=== PATIENT | male | born 1950 | race Caucasian/White ===

== ENCOUNTER 2020-11-10 21:04 | Observation (INO) | payer MEDICARE ==
[~2020-11-10] VITALS: Ht 182.9 cm; Wt 123.8 kg
[2020-11-10] MEDS ORDERED: ALBUTEROL SULFATE 2.5 MG/3 ML NPPB ONE (21:30)
[2020-11-10] MEDS ORDERED: ALBUTEROL SULFATE 2.5 MG/3 ML ONE (21:35)
--- NOTE | 2020-11-10 21:55 | NUR ---
pt states having chest pain and sob since july this year. 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 pt recently moved here from [place], labs drawn, recieving albuterol, on all the monitors. given water, ok per erp
[2020-11-10 21:56] LABS: BASOPHILS % (AUTO) 0 % (0-1); EOSINOPHILS % (AUTO) 0 % (1-7); LYMPHOCYTES % (AUTO) 12 % (22-44); MEAN CORPUSCULAR HEMOGLOBIN 34.2 pg (27.5-34.5); MEAN CORPUSCULAR HGB CONC 34.8 g/dL (33.2-36.2); MEAN PLATELET VOLUME 8.7 fL (7.4-10.4); MONOCYTES % (AUTO) 7 % (2-9); NEUTROPHILS % (AUTO) 80 % (42-75); PLATELET COUNT 122 x10^3/uL (130-400); RED CELL DISTRIBUTION WIDTH 15.3 % (9.4-14.8)
[2020-11-10 22:09] LABS: ALANINE AMINOTRANSFERASE 153 U/L (12-78); ALBUMIN 3.1 g/dL (3.4-5.0); ANION GAP 8 mmol/L (5-15); CALCIUM 8.8 mg/dL (8.5-10.1); CHLORIDE 111 mmol/L (98-107); CREATININE 0.88 mg/dL (0.7-1.3)
[2020-11-10 22:19] LABS: ALKALINE PHOSPHATASE 46 U/L (45-117); BILIRUBIN,TOTAL 1.7 mg/dL (0.2-1.0); TOTAL PROTEIN 6.3 g/dL (6.4-8.2); TROPONIN I < 0.015 ng/mL (0.000-0.045)
[2020-11-10] MEDS ORDERED: NITROGLYCERIN 0.4 MG BOTTLE (25 TABS) SL PRN (23:30)
[2020-11-10] MEDS ORDERED: morphine SULFATE 10 MG/ML, 1ML IVPush PRN (23:30)
[2020-11-10] MEDS ORDERED: POLYETHYLENE GLYCOL 17 GM PACKET PO PRN (23:30)
[2020-11-10] MEDS ORDERED: ONDANSETRON ODT 4 MG PO PRN (23:30)
[2020-11-10] MEDS ORDERED: BISACODYL 10 MG SUPP PR PRN (23:30)
--- NOTE | 2020-11-10 23:46 | NUR ---
ATT X 1
[2020-11-11] MEDS ORDERED: LOSA50TA14 PO (00:13)
[2020-11-11] MEDS ORDERED: AMLO-211 PO (00:13)
[2020-11-11] MEDS ORDERED: DABI150C PO (00:13)
[2020-11-11] MEDS ORDERED: DOXA8TAB63 PO (00:13)
[2020-11-11] MEDS ORDERED: CARV12.52 PO (00:13)
[2020-11-11] MEDS ORDERED: TORS10TA4 PO (00:13)
[2020-11-11] MEDS ORDERED: ALLO100T30 PO (00:13)
[2020-11-11] MEDS ORDERED: PRED20TA PO (00:13)
[2020-11-11 00:45] VITALS: BP 125/83
[2020-11-11] MEDS ORDERED: MAALOX/HYOSCYAMINE/LIDOCAINE 45 ML BTL PO ONE (01:30)
[2020-11-11 05:25] LABS: BASOPHILS % (AUTO) 0 % (0-1); EOSINOPHILS % (AUTO) 0 % (1-7); LYMPHOCYTES % (AUTO) 14 % (22-44); MEAN CORPUSCULAR HEMOGLOBIN 34.8 pg (27.5-34.5); MEAN CORPUSCULAR HGB CONC 34.8 g/dL (33.2-36.2); MEAN PLATELET VOLUME 8.9 fL (7.4-10.4); MONOCYTES % (AUTO) 7 % (2-9); NEUTROPHILS % (AUTO) 79 % (42-75); PLATELET COUNT 123 x10^3/uL (130-400); RED CELL DISTRIBUTION WIDTH 15.2 % (9.4-14.8)
[2020-11-11 05:29] LABS: CHLORIDE 109 mmol/L (98-107)
[2020-11-11 05:42] LABS: ALANINE AMINOTRANSFERASE 146 U/L (12-78); ALKALINE PHOSPHATASE 37 U/L (45-117); ANION GAP 9 mmol/L (5-15); BILIRUBIN,TOTAL 1.9 mg/dL (0.2-1.0); CALCIUM 8.7 mg/dL (8.5-10.1); CHOL/HDL RATIO 3.5; CHOLESTEROL, TOTAL 169 mg/dL (140-239); CREATININE 0.76 mg/dL (0.7-1.3); HDL CHOL % 28 % (26-37); HDL CHOLESTEROL (DIRECT) 48 mg/dL (40-60); LDL CHOLESTEROL,CALCULATED 100 mg/dL (54-169); LDL/HDL RATIO 2.1 (0.5-3.0); TOTAL PROTEIN 5.8 g/dL (6.4-8.2); TRIGLYCERIDES 105 mg/dL (50-200); TROPONIN I < 0.015 ng/mL (0.000-0.045); VLDL CHOLESTEROL 21 mg/dL (0-25)
[2020-11-11] MEDS ORDERED: ASPIRIN 81 MG TABLET EC PO SCH (06:00)
[2020-11-11 07:49] VITALS: BP 124/76
[2020-11-11] MEDS ORDERED: REGADENOSON 0.4 MG/5 ML SYRINGE ONE (08:57)
[2020-11-11] MEDS ORDERED: ALLOPURINOL 100 MG TABLET PO SCH (09:00)
[2020-11-11] MEDS ORDERED: LOSARTAN 50MG TABLET PO SCH (09:00)
[2020-11-11] MEDS ORDERED: predniSONE 50MG TABLET PO SCH (09:00)
[2020-11-11] MEDS ORDERED: DABIGATRAN 150 MG CAPSULE PO SCH (09:00)
[2020-11-11] MEDS ORDERED: CARVEDILOL 12.5 MG TABLET PO SCH (09:00)
[2020-11-11] MEDS ORDERED: SENNA/DOCUSATE TABLET PO SCH (09:00)
[2020-11-11] MEDS ORDERED: TORSEMIDE 5 MG TAB PO SCH (09:00)
[2020-11-11] MEDS ORDERED: DOXAZOSIN 2MG TABLET PO SCH (09:00)
[2020-11-11 12:35] VITALS: BP 110/75
[2020-11-11] MEDS ORDERED: ISOS30TA8 PO (14:11)
[2020-11-11] MEDS ORDERED: ISOSORBIDE MONONITRATE ER 30 MG TABLET PO ONE (14:30)
[2020-11-11 14:44] VITALS: BP 119/74
[2020-11-11] MEDS ORDERED: AMLODIPINE 10 MG TAB PO SCH (21:00)
== END 2020-11-11 16:42 | disposition home or self-care (01) ==
LOC: ED 22:00 → INTOOBSV 22:43 → EDIP 22:43 → ED 23:46 → 5SO 11-11 00:38
PROVIDERS: ADMIT Student in an Organized Health Care Education/Training Program; ATTEND Hospitalist
DX: R07.89 Other chest pain (principal); R13.10 Dysphagia, unspecified; R06.00 Dyspnea, unspecified; D75.89 Other specified diseases of blood and blood-forming organs; R74.01 Elevation of levels of liver transaminase levels; I48.20 Chronic atrial fibrillation, unspecified; D84.9 Immunodeficiency, unspecified; D68.69 Other thrombophilia; M35.3 Polymyalgia rheumatica; E83.119 Hemochromatosis, unspecified; I10 Essential (primary) hypertension; M11.20 Other chondrocalcinosis, unspecified site; R73.9 Hyperglycemia, unspecified; I42.9 Cardiomyopathy, unspecified; Z79.01 Long term (current) use of anticoagulants; Z96.659 Presence of unspecified artificial knee joint; Z79.899 Other long term (current) drug therapy
CPT/HCPCS: 36415; 71045; 74220; 78452; 80053; 80061; 82607; 83036; 83735; 83880; 84443; 84484; 85025; 93005; 93017; 93306; 99285; A9502; C9898; G0378; J2785; J7512; J7613

== ENCOUNTER 2020-11-23 06:33 | Day surgery (SDC) | payer MEDICARE ==
[~2020-11-23] VITALS: Ht 182.9 cm; Wt 115.9 kg
[~2020-11-23 06:33] MED LIST: ALLO100T30 PO; AMLO-211 PO; CARV12.52 PO; DABI150C PO; DOXA8TAB63 PO; ISOS30TA8 PO; LOSA50TA14 PO; PRED20TA PO; TORS10TA4 PO
[2020-11-23 07:28] VITALS: BP 112/81
[2020-11-23] MEDS ORDERED: DOXA8TAB63 PO (07:42)
[2020-11-23] MEDS ORDERED: PRED5TAB PO (07:42)
[2020-11-23] MEDS ORDERED: ISOS30TA8 PO ×2 (07:42→08:45)
[2020-11-23] MEDS ORDERED: DABI150C PO (08:45)
[2020-11-23 08:56] LABS: ANION GAP 7 mmol/L (5-15); CALCIUM 8.6 mg/dL (8.5-10.1); CHLORIDE 109 mmol/L (98-107); CREATININE 0.81 mg/dL (0.7-1.3)
[2020-11-23] MEDS ORDERED: PROPOFOL 10 MG/ML, 20ML ONE ×2 (12:24→14:53)
== END 2020-11-23 10:10 | disposition home or self-care (01) ==
LOC: CACL 06:33
PROVIDERS: ATTEND Internal Medicine Cardiovascular Disease
DX: I48.11 Longstanding persistent atrial fibrillation (principal); I10 Essential (primary) hypertension; I25.10 Atherosclerotic heart disease of native coronary artery without angina pectoris; E83.119 Hemochromatosis, unspecified; M35.3 Polymyalgia rheumatica; Z79.01 Long term (current) use of anticoagulants; Z79.899 Other long term (current) drug therapy
CPT/HCPCS: 36415; 80048; 92960; J2704

== ENCOUNTER 2020-12-18 11:13 | Emergency (ER) | payer MEDICARE ==
[~2020-12-18] VITALS: Ht 182.9 cm; Wt 118.5 kg
[~2020-12-18 11:13] MED LIST changes: +PRED5TAB PO
[2020-12-18] MEDS ORDERED: SODIUM CHLORIDE FLUSH 10ML SYR IVF ONE (12:30)
[2020-12-18 12:39] VITALS: BP 128/79
--- NOTE | 2020-12-18 12:39 | NUR ---
PT REQUESTING RAIL TO BE LEFT DOWN SO HE CAN SIT UP. PT EDUCATED ABOUT RISKS OF FALLING AND PT STATES HE UNDERSTANDS RISK AND WANTS THE RAIL TO STAY DOWN.
[2020-12-18 13:02] LABS: BASOPHILS % (AUTO) 1 % (0-1); EOSINOPHILS % (AUTO) 0 % (1-7); LYMPHOCYTES % (AUTO) 18 % (22-44); MEAN CORPUSCULAR HEMOGLOBIN 35.3 pg (27.5-34.5); MEAN CORPUSCULAR HGB CONC 35.2 g/dL (33.2-36.2); MEAN PLATELET VOLUME 8.8 fL (7.4-10.4); MONOCYTES % (AUTO) 8 % (2-9); NEUTROPHILS % (AUTO) 73 % (42-75); PLATELET COUNT 113 x10^3/uL (130-400); RED BLOOD COUNT 4.67 x10^6/uL (4.38-5.82); RED CELL DISTRIBUTION WIDTH 14.7 % (9.4-14.8)
[2020-12-18 13:38] LABS: ANION GAP 11 mmol/L (5-15); CALCIUM 9.1 mg/dL (8.5-10.1); CHLORIDE 107 mmol/L (98-107); CREATININE 0.97 mg/dL (0.7-1.3)
[2020-12-18 13:39] LABS: ALANINE AMINOTRANSFERASE 179 U/L (12-78); ALBUMIN 3.4 g/dL (3.4-5.0)
[2020-12-18 13:43] LABS: ALKALINE PHOSPHATASE 50 U/L (45-117); BILIRUBIN,TOTAL 3.6 mg/dL (0.2-1.0); TOTAL PROTEIN 6.5 g/dL (6.4-8.2); TROPONIN I < 0.015 ng/mL (0.000-0.045)
[2020-12-18] MEDS ORDERED: DIGOXIN 0.25 MG TABLET PO ONE (14:20)
--- NOTE | 2020-12-18 14:47 | NUR ---
PT REC/VD DISCHARGE INSTRUCTIONS AND EDUCATION. PT HAD NO QUESTIONS. PT IN WHEELCHAIR TO DC AREA.
== END 2020-12-18 15:04 | disposition home or self-care (01) ==
LOC: ED 11:44
DX: R06.00 Dyspnea, unspecified (principal); I48.91 Unspecified atrial fibrillation; G89.29 Other chronic pain; R00.0 Tachycardia, unspecified; I10 Essential (primary) hypertension
CPT/HCPCS: 36415; 71045; 80053; 83880; 84484; 85025; 93005; 99285

== ENCOUNTER → 2020-12-21 | Outpatient (CLI) | payer MEDICARE ==
[~2020-12-21] MED LIST changes: +OMNIPAQUE 350 MG/ML, 150 ML BOTTLE ONE
== END | disposition home or self-care (01) ==
LOC: CFH 10:12
PROVIDERS: ATTEND Internal Medicine Cardiovascular Disease
DX: I25.10 Atherosclerotic heart disease of native coronary artery without angina pectoris (principal); I42.9 Cardiomyopathy, unspecified
CPT/HCPCS: 75572; Q9967

== ENCOUNTER 2020-12-24 10:56 | Observation (INO) | payer MEDICARE ==
[~2020-12-24] VITALS: Ht 182.9 cm; Wt 121.6 kg
[~2020-12-24 10:56] MED LIST changes: -OMNIPAQUE 350 MG/ML, 150 ML BOTTLE ONE
[2020-12-24] MEDS ORDERED: DIGO125T85 PO (11:24)
[2020-12-24] MEDS ORDERED: SODIUM CHLORIDE 0.9% 1,000 ML IV SCH (11:30)
[2020-12-24] MEDS ORDERED: LIDOCAINE 2%, 20ML ONE (11:31)
[2020-12-24] MEDS ORDERED: AMLO-211 PO (11:34)
[2020-12-24 11:36] VITALS: BP 116/65
[2020-12-24] MEDS ORDERED: FENTANYL PF 100 MCG/2ML ONE (11:47)
[2020-12-24] MEDS ORDERED: HEPARIN 1,000 UNITS/ML, 10ML ONE ×5 (11:48→13:52)
[2020-12-24] MEDS ORDERED: ONDANSETRON 2MG/ML, 2ML ONE (11:50)
[2020-12-24] MEDS ORDERED: PROPOFOL 10 MG/ML, 20ML ONE (11:50)
[2020-12-24] MEDS ORDERED: LIDOCAINE-MPF 2% ,5ML ONE (11:50)
[2020-12-24] MEDS ORDERED: DEXAMETHASONE 4 MG/ML, 1ML ONE (11:50)
[2020-12-24] MEDS ORDERED: SUCCINYLCHOLINE 20 MG/ML, 10ML ONE (11:50)
[2020-12-24] MEDS ORDERED: ROCURONIUM 10MG/ML,5ML ONE ×2 (11:50→12:53)
[2020-12-24] MEDS ORDERED: PHENYLEPHRINE 10 MG/ML ONE (12:22)
[2020-12-24] MEDS ORDERED: SUGAMMADEX 200 MG/2 ML IVPush ONE (12:34)
[2020-12-24] MEDS ORDERED: FENTANYL PF 100 MCG/2ML IV PRN (16:00)
[2020-12-24] MEDS ORDERED: EPHEDRINE 50 MG/ML, 1ML IVPush PRN (16:00)
[2020-12-24] MEDS ORDERED: LABETALOL 5MG/ML, 20ML IV PRN (16:00)
[2020-12-24] MEDS ORDERED: OXYcodone 5 MG/5 ML ORAL.SOL UDC PO PRN (16:00)
[2020-12-24] MEDS ORDERED: HYDROmorphone 1 MG/ML, 1ML INJ IVPush PRN (16:00)
[2020-12-24] MEDS ORDERED: ZOLPIDEM 5MG TABLET PO PRN (16:00)
[2020-12-24] MEDS ORDERED: ACETAMINOPHEN 325 MG TABLET PO PRN ×2 (16:00)
[2020-12-24] MEDS ORDERED: hydrALAzine 20 MG/ML, 1ML IV PRN (16:00)
[2020-12-24] MEDS ORDERED: PROMETHAZINE 25 MG/ML, 1ML IVPush PRN (16:00)
[2020-12-24] MEDS ORDERED: ONDANSETRON 2MG/ML, 2ML IVPush PRN ×2 (16:00)
[2020-12-24] MEDS ORDERED: DABIGATRAN 150 MG CAPSULE PO ONE (16:04)
[2020-12-24] MEDS ORDERED: SOTALOL 80MG TABLET PO SCH (18:00)
[2020-12-24 18:39] VITALS: BP 133/90
[2020-12-24] MEDS: COLCHICINE 0.6 MG CAPSULE PO SCH (20:48)
[2020-12-24] MEDS: DOXAZOSIN 2MG TABLET PO SCH (20:49)
[2020-12-24] MEDS: DABIGATRAN 150 MG CAPSULE PO SCH (20:50)
[2020-12-24 21:12] VITALS: BP 128/82
[2020-12-25 00:55] VITALS: BP 122/85
[2020-12-25] MEDS: ALLOPURINOL 100 MG TABLET PO SCH ×2 (09:00→09:59)
[2020-12-25] MEDS: TORSEMIDE 5 MG TAB PO SCH ×2 (09:00→09:59)
[2020-12-25 09:50] VITALS: BP 152/99
[2020-12-25] MEDS: DABIGATRAN 150 MG CAPSULE PO SCH ×2 (09:58→21:26)
[2020-12-25] MEDS: AMLODIPINE 10 MG TAB PO SCH (09:59)
[2020-12-25] MEDS: ISOSORBIDE MONONITRATE ER 30 MG TABLET PO SCH (10:00)
[2020-12-25] MEDS: COLCHICINE 0.6 MG CAPSULE PO SCH ×2 (10:00→21:32)
[2020-12-25] MEDS: DOXAZOSIN 2MG TABLET PO SCH ×2 (10:00→21:27)
[2020-12-25] MEDS: LOSARTAN 50MG TABLET PO SCH (10:00)
[2020-12-25] MEDS ORDERED: SOTALOL 80MG TABLET PO ONE (10:30)
[2020-12-25 12:02] VITALS: BP 149/81
[2020-12-25] MEDS ORDERED: ATORVASTATIN 20 MG TABLET PO SCH (21:00)
[2020-12-25] MEDS: SOTALOL 120MG TABLET PO SCH (21:26)
[2020-12-25 21:33] VITALS: BP 92/60
[2020-12-25 21:39] VITALS: BP 104/68
[2020-12-26] VITALS (7 sets, daily range): BP systolic 103–138; BP diastolic 65–75
[2020-12-26 04:44] LABS: BASOPHILS % (AUTO) 0 % (0-1); EOSINOPHILS % (AUTO) 0 % (1-7); LYMPHOCYTES % (AUTO) 12 % (22-44); MEAN CORPUSCULAR HEMOGLOBIN 36.2 pg (27.5-34.5); MEAN CORPUSCULAR HGB CONC 35.6 g/dL (33.2-36.2); MEAN PLATELET VOLUME 8.8 fL (7.4-10.4); MONOCYTES % (AUTO) 7 % (2-9); NEUTROPHILS % (AUTO) 81 % (42-75); PLATELET COUNT 129 x10^3/uL (130-400); RED BLOOD COUNT 3.37 x10^6/uL (4.38-5.82); RED CELL DISTRIBUTION WIDTH 14.3 % (9.4-14.8)
[2020-12-26 04:53] LABS: ANION GAP 4 mmol/L (5-15); CALCIUM 8.8 mg/dL (8.5-10.1); CHLORIDE 106 mmol/L (98-107)
[2020-12-26 04:55] LABS: CREATININE 0.81 mg/dL (0.7-1.3)
[2020-12-26] MEDS: SOTALOL 120MG TABLET PO SCH (05:41)
[2020-12-26] MEDS ORDERED: COLC0.6C3 PO (08:28)
[2020-12-26] MEDS ORDERED: SOTA120T14 PO (08:28)
[2020-12-26] MEDS: ALLOPURINOL 100 MG TABLET PO SCH (09:00)
[2020-12-26] MEDS: TORSEMIDE 5 MG TAB PO SCH (09:00)
[2020-12-26] MEDS: DABIGATRAN 150 MG CAPSULE PO SCH (09:57)
[2020-12-26] MEDS: LOSARTAN 50MG TABLET PO SCH (09:57)
[2020-12-26] MEDS: DOXAZOSIN 2MG TABLET PO SCH (09:58)
[2020-12-26] MEDS: ISOSORBIDE MONONITRATE ER 30 MG TABLET PO SCH (09:58)
[2020-12-26] MEDS: COLCHICINE 0.6 MG CAPSULE PO SCH (09:58)
[2020-12-26] MEDS: AMLODIPINE 10 MG TAB PO SCH (09:58)
[2020-12-26] MEDS ORDERED: POTASSIUM CHLORIDE 20 MEQ TAB.ER.PRT PO ONE (10:00)
[2020-12-26] MEDS ORDERED: FUROSEMIDE 40 MG/4 ML IV ONE (10:00)
[2020-12-26] MEDS ORDERED: ISOS30TA21 PO (13:16)
== END 2020-12-26 15:45 | disposition home or self-care (01) ==
LOC: CACL 10:56 → ORIP 15:33 → 5SO 17:45
PROVIDERS: ADMIT Internal Medicine Cardiovascular Disease; ATTEND Internal Medicine Cardiovascular Disease
DX: I48.0 Paroxysmal atrial fibrillation (principal); Z20.822 Contact with and (suspected) exposure to COVID-19; I48.11 Longstanding persistent atrial fibrillation; D68.69 Other thrombophilia; E66.9 Obesity, unspecified; G47.33 Obstructive sleep apnea (adult) (pediatric); I11.9 Hypertensive heart disease without heart failure; I31.3 Pericardial effusion (noninflammatory); I25.10 Atherosclerotic heart disease of native coronary artery without angina pectoris; M19.90 Unspecified osteoarthritis, unspecified site; G89.29 Other chronic pain; E83.119 Hemochromatosis, unspecified; D53.9 Nutritional anemia, unspecified; M35.3 Polymyalgia rheumatica; G47.00 Insomnia, unspecified; Z79.01 Long term (current) use of anticoagulants; Z79.52 Long term (current) use of systemic steroids; Z91.19 Patient's noncompliance with other medical treatment and regimen; Z79.899 Other long term (current) drug therapy
CPT/HCPCS: 36415; 80048; 85025; 85347; 93005; 93308; 93312; 93321; 93325; 93613; 93656; 93657; 93662; 96374; C1730; C1732; C1759; C1766; C1893; C1894; G0378; J0330; J1100; J1644; J1940; J2370; J2405; J2704; J3010; J3490; J7512; U0003; U0005